=== PATIENT | female | born 1990 | race Caucasian/White ===

== ENCOUNTER → 2025-04-29 09:23 | Outpatient (REF) | payer OTHER, SELFPAY | LOC: HWRAD 09:23 | PROVIDERS: ATTENDING PHYSICIAN Advanced Practice Midwife | DX: Z34.80 Encounter for supervision of other normal pregnancy, unspecified trimester (principal) | CPT/HCPCS: 76801 ==

== ENCOUNTER → 2025-07-30 07:54 | Outpatient (REF) | payer OTHER, SELFPAY | LOC: WDC 07:54 | PROVIDERS: ATTENDING PHYSICIAN Otolaryngology | DX: Z98.82 Breast implant status (principal) | CPT/HCPCS: 76642 ==